=== PATIENT | female | born 1940 | race Caucasian/White ===

== ENCOUNTER 2018-01-18 10:30 | Outpatient (CLI) | payer MEDICARE | END 2018-01-18 10:31 | disposition home or self-care (01) | LOC: BICMAMMO 10:30 | PROVIDERS: ATTEND Specialist | DX: Z12.31 Encounter for screening mammogram for malignant neoplasm of breast (principal) | CPT/HCPCS: 77063; 77067 ==

== ENCOUNTER 2019-01-19 09:55 | Outpatient (CLI) | payer MEDICARE ==
--- NOTE | 2019-01-19 10:35 | MMO ---
Bilateral MAMMO Bilat Screen [facility]. CLINICAL HISTORY: Patient is 78 years old and is seen for screening. The patient has no family history of breast cancer. The patient has no personal history of cancer. VIEWS: The views performed were: bilateral craniocaudal with tomosynthesis and bilateral mediolateral oblique with tomosynthesis. FILMS COMPARED: The present examination has been compared to prior imaging studies performed at [facility] on 12/17/2014, 01/03/2016, 01/05/2017 and 01/18/2018. MAMMOGRAM FINDINGS: There are scattered fibroglandular densities. There are no suspicious masses, suspicious calcifications, or new areas of architectural distortion. IMPRESSION: THERE IS NO MAMMOGRAPHIC EVIDENCE OF MALIGNANCY. A ROUTINE FOLLOW-UP MAMMOGRAM IN 1 YEAR IS RECOMMENDED. THE RESULTS OF THIS EXAM WERE SENT TO THE PATIENT. ACR BI-RADS Category 1 - Negative MAMMOGRAPHY NOTE: 1. A negative mammogram report should not delay a biopsy if a dominant of clinically suspicious mass is present. 2. Approximately 10% to 15% of breast cancers are not detected by mammography. 3. Adenosis and dense breasts may obscure an underlying neoplasm.
== END 2019-01-19 09:56 | disposition home or self-care (01) ==
LOC: BICMAMMO 09:55
PROVIDERS: ATTEND Obstetrics & Gynecology
DX: Z12.31 Encounter for screening mammogram for malignant neoplasm of breast (principal)
CPT/HCPCS: 77063; 77067

== ENCOUNTER 2019-03-16 17:11 | Emergency (ER) | payer MEDICARE ==
[2019-03-16 17:53] LABS: #Basophils 0.1 thou/uL (0.0-0.2); #Eosinphils 0.1 thou/uL (0.0-0.7); #Lymphocytes 5.4 thou/uL (1.20-3.40); #Monocytes 0.8 thou/uL (0.11-0.59); #Neutrophils 5.8 thou/uL (1.40-6.50); %Basophils 0.7 % (0.0-1.0); %Eosinophils 0.6 % (0.0-10.0); %Lymphocytes 44.2 % (21.0-51.0); %Monocytes 6.4 % (0.0-10.0); %Neutrophils 48.1 % (42.0-75.0); Hemoglobin 13.7 g/dL (12.0-16.0); Mean Corpuscular HGB CONC 32.5 g/dL (32.0-36.0); Mean Corpuscular Hemoglobin 27.1 pg (27.0-31.0); Mean Corpuscular Volume 83.4 fL (78.0-98.0); Mean Platelet Volume 8.2 fL (7.4-10.4); Platelet Count 195 thou/uL (130-400); RBC Distribution Width 12.8 % (11.5-14.5); Red Blood Cell (RBC) Count 5.06 mill/uL (4.20-5.40); White Blood Cell (WBC) Count 12.1 thou/uL (4.8-10.8)
--- NOTE | 2019-03-16 17:59 | RAD ---
EXAM: Portable chest PROVIDED CLINICAL HISTORY: Shortness of breath COMPARISON: 02/06/2015 FINDINGS: Cardiac silhouette appears enlarged, which may be least partially on the basis of portable technique. No focal consolidation, pleural fluid or pneumothorax evident. Hiatal hernia noted. IMPRESSION: No evidence for an acute cardiopulmonary process.
[2019-03-16 18:16] LABS: ALT (SGPT) 15 U/L (8-55); AST (SGOT) 22 U/L (5-34); Albumin 4.4 g/dL (3.4-4.8); Alkaline Phosphatase 90 U/L (40-150); Anion Gap 13 mmol/L (10-20); BUN (Urea Nitrogen) 19 mg/dL (9.8-20.1); Bilirubin, Total 0.5 mg/dL (0.2-1.2); Calc. Creatinine Clearance 0 mL/min (70-130); Calcium 9.4 mg/dL (7.8-10.44); Carbon Dioxide 22 mmol/L (23-31); Chloride 105 mmol/L (98-107); Estimated GFR-MDRD 40; Globulin 2.6 g/dL (2.4-3.5); Glucose 105 mg/dL (83-110); Potassium 4.3 mmol/L (3.5-5.1); Sodium 136 mmol/L (136-145)
--- NOTE | 2019-03-18 16:49 | EKG ---
Test Reason : SOB Blood Pressure : / mmHG Vent. Rate : 069 BPM Atrial Rate : 069 BPM P-R Int : 158 ms QRS Dur : 084 ms QT Int : 394 ms P-R-T Axes : 071 -08 046 degrees QTc Int : 422 ms Normal sinus rhythm Normal ECG Confirmed by RUBY CÁRDENAS D.O. ([id number]), editor magazine LISETTE HINKLE ([id number]) on 03/18/2019 4:48:59 PM Referred By: Confirmed By:RUBY CÁRDENAS D.O.
== END 2019-03-16 19:49 | disposition home or self-care (01) ==
LOC: ERS 17:11
DX: J20.9 Acute bronchitis, unspecified (principal); E05.90 Thyrotoxicosis, unspecified without thyrotoxic crisis or storm; E03.9 Hypothyroidism, unspecified; K21.9 Gastro-esophageal reflux disease without esophagitis; E78.5 Hyperlipidemia, unspecified; I10 Essential (primary) hypertension; Z79.899 Other long term (current) drug therapy; Z79.82 Long term (current) use of aspirin
CPT/HCPCS: 36415; 71045; 80053; 83605; 84443; 84484; 85025; 87040; 93005; 94640; 94760; J7620

== ENCOUNTER 2020-02-09 14:27 | Outpatient (CLI) | payer MEDICARE ==
--- NOTE | 2020-02-09 16:28 | MMO ---
Bilateral MAMMO Bilat Screen [facility]. CLINICAL HISTORY: Patient is 79 years old and is seen for screening. The patient has no family history of breast cancer. The patient has no personal history of cancer. VIEWS: The views performed were: bilateral craniocaudal with tomosynthesis and bilateral mediolateral oblique with tomosynthesis. FILMS COMPARED: The present examination has been compared to prior imaging studies performed at [facility] on 01/03/2016, 01/05/2017, 01/18/2018 and 01/19/2019. This study has been interpreted with the assistance of computer-aided detection. MAMMOGRAM FINDINGS: The breasts are almost entirely fat. There are stable nodules seen in both breasts. There are no suspicious masses, suspicious calcifications, or new areas of architectural distortion. IMPRESSION: THERE IS NO MAMMOGRAPHIC EVIDENCE OF MALIGNANCY. A ROUTINE FOLLOW-UP MAMMOGRAM IN 1 YEAR IS RECOMMENDED. THE RESULTS OF THIS EXAM WERE SENT TO THE PATIENT. ACR BI-RADS Category 2 - Benign finding MAMMOGRAPHY NOTE: 1. A negative mammogram report should not delay a biopsy if a dominant of clinically suspicious mass is present. 2. Approximately 10% to 15% of breast cancers are not detected by mammography. 3. Adenosis and dense breasts may obscure an underlying neoplasm. Reported by: LEO CORNELL MD Electonically Signed: [id number]
== END 2020-02-09 14:28 | disposition home or self-care (01) ==
LOC: BICMAMMO 14:27
PROVIDERS: ATTEND Specialist
DX: Z12.31 Encounter for screening mammogram for malignant neoplasm of breast (principal)
CPT/HCPCS: 77063; 77067

== ENCOUNTER 2020-08-14 21:21 | Inpatient (IN) | payer MEDICARE ==
[2020-08-14 23:52] VITALS: BMI 32.1
[2020-08-15] MEDS ORDERED: Sodium Chloride 0.9% 1,000 ML IV SCH (01:00)
[2020-08-15 04:57] LABS: #Basophils 0.1 thou/uL (0.0-0.2); #Lymphocytes 1.3 thou/uL (1.20-3.40); #Monocytes 0.1 thou/uL (0.11-0.59); #Neutrophils 1.9 thou/uL (1.40-6.50); %Basophils 1.6 % (0.0-1.0); %Eosinophils 0.2 % (0.0-10.0); %Lymphocytes 39.3 % (21.0-51.0); %Monocytes 2.2 % (0.0-10.0); %Neutrophils 56.6 % (42.0-75.0); Hemoglobin 12.2 g/dL (12.0-16.0); Mean Corpuscular HGB CONC 33.2 g/dL (32.0-36.0); Mean Corpuscular Hemoglobin 26.8 pg (27.0-31.0); Mean Corpuscular Volume 80.8 fL (78.0-98.0); Mean Platelet Volume 9.7 fL (7.4-10.4); Platelet Count 146 thou/uL (130-400); RBC Distribution Width 12.3 % (11.5-14.5); Red Blood Cell (RBC) Count 4.56 mill/uL (4.20-5.40); White Blood Cell (WBC) Count 3.3 thou/uL (4.8-10.8)
[2020-08-15] MEDS: Dexamethasone 4 mg/ml Vial SLOW IVP SCH (07:51)
[2020-08-15] MEDS ORDERED: Ondansetron PF 4 MG/2 ML Vial IVP PRN (08:12)
[2020-08-15] MEDS ORDERED: Ibuprofen 200 MG TAB PO PRN (08:17)
[2020-08-15] MEDS: Zinc Sulfate 220 MG CAP PO SCH (08:25)
[2020-08-15] MEDS: Potassium Chloride 20 MEQ TAB PO SCH (08:25)
[2020-08-15] MEDS: Ergocalciferol 1.25 MG(50,000 UNITS) CAP PO SCH (08:25)
[2020-08-15] MEDS: Enoxaparin Sodium 40 MG/0.4 ML SYRINGE SC SCH (08:25)
[2020-08-15] MEDS: Ascorbic Acid 500 mg Chewable Tablet PO SCH (08:26)
[2020-08-15] MEDS: Metoprolol Tartrate 25 MG TAB PO SCH ×2 (08:26→20:38)
--- NOTE | 2020-08-15 09:20 | RAD ---
EXAM: Single view of the chest HISTORY: Covid pneumonia COMPARISON: 03/16/2019 FINDINGS: Single view of the chest shows an enlarged but stable cardiomediastinal silhouette. Increa sed interstitial lung markings are present. There are scattered multifocal airspace opacities in the lungs. Degenerative changes are seen in the spine. IMPRESSION: Multifocal infiltrates
[2020-08-15] MEDS: Thyroid 60 MG TAB PO SCH (10:13)
--- NOTE | 2020-08-15 11:16 | HP ---
CHIEF COMPLAINT: COVID pneumonia. HISTORY OF PRESENT ILLNESS: The patient is a 80-year-old female, who initially became ill 6 days prior. She had cough and nausea. She eventually went to [facility] ER. There, she was with her altered mental status, found to have COVID pneumonia, confirmed with chest x-ray as well. The patient was found at [facility] to have altered mental status. This had begun 2 days ago according to the historian which was her daughter. She had been short of breath, beginning approximately [address] Monterroso was contacted for transfer and admission to [facility] at this point. PAST MEDICAL HISTORY: Significant for dyslipidemia, hypertension, hypothyroidism, GERD, depression. PAST SURGICAL HISTORY: Significant for hysterectomy. PSYCHIATRIC HISTORY: There is no psychiatric history other than depression. SOCIAL HISTORY: Recently . Denies ever smoking, alcohol use, or illicit drug use. Lives at home by herself. Allergies:Sulfa, Codeine, Alendronate MEDICATIONS ON ADMISSION: Include; 1. Daily aspirin 81 mg. 2. Lasix 20 mg on Wednesday, Wednesday, Wednesday. 3. Ibuprofen p.r.n. joint pain. 4. Metoprolol 12.5 mg b.i.d. 5. Singulair 10 mg daily. 6. Omeprazole 40 mg daily. 7. Potassium 20 mEq daily. 8. Sertraline 50 mg at bedtime. 9. Virgil Thyroid 60 mg daily. REVIEW OF SYSTEMS: Not obtainable at this time due to the patient's altered mental status. PHYSICAL EXAMINATION: VITAL SIGNS: On admission, blood pressure 106/51, pulse 51, respirations 18, O2 saturation 95% on 4 L. She weighs 205 pounds 8 ounces. GENERAL: This is a morbidly obese, elderly female, who is confused with slurred speech at this time. HEENT: Normocephalic, atraumatic. Pupils are equal, round, and reactive to light. Arcus senilis bilaterally. Conjunctivae without icterus. TMs, nares, and pharynx are clear. NECK: Supple. CHEST: With generally diminished breath sounds, but no active wheezing or rales at this time. HEART: Regular rate and rhythm. BREASTS: Deferred. ABDOMEN: Soft, nontender without organomegaly. : Deferred. EXTREMITIES: Without clubbing or cyanosis. 1+ lower extremity edema noted, which is normal for this patient. SKIN: No acute rashes or lesions. NEUROLOGIC: Cranial nerves are grossly intact. Sensory exam is grossly intact. Unable to test mental status at this time, gait, or cerebellar function. LABORATORY DATA: Lab work thus far shows WBCs 3.3, hemoglobin 12.2, hematocrit 36.8, with platelets at 146. D-dimer 1.62. Chest x-ray at [facility] showing typical bilateral COVID infiltrates. ASSESSMENT: 1. COVID pneumonia with hypoxia and altered mental status. 2. Hypothyroidism. 3. Morbid obesity. PLAN: Supportive care with IV fluids, IV Decadron, serial re-evaluation, prevention of blood clots with Lovenox, fever control with Tylenol. face to face 40 min, total time 1 hour date of [id number]/2020 Job ID: [id number] MTDD
[2020-08-15] MEDS: Sodium Chloride 0.9% 1,000 ML IV SCH ×2 (11:37→20:40)
[2020-08-15 16:01] LABS: ALT (SGPT) 27 U/L (8-55); AST (SGOT) 34 U/L (5-34); Albumin 3.3 g/dL (3.4-4.8); Alkaline Phosphatase 73 U/L (40-110); Bilirubin, Direct 0.3 mg/dL (0.1-0.3); Bilirubin, Total 0.4 mg/dL (0.2-1.2); Protein, Total 5.8 g/dL (6.0-8.3)
[2020-08-15 20:20] LABS: SARS-CoV-2 MS2 Positive; SARS-CoV-2 N Gene Positive; SARS-CoV-2 S Gene Positive; SARS-CoV-2 by NAA DETECTED (NotDetected); SARS-CoV-2 orf1ab Positive
[2020-08-16] MEDS: Benzonatate 100 MG CAP PO PRN (00:35)
[2020-08-16] MEDS ORDERED: diphenhydrAMINE 25 MG CAP PO SCH (02:45)
[2020-08-16] MEDS: Acetaminophen 325 MG TAB PO PRN ×2 (02:59→09:08)
[2020-08-16 05:14] LABS: #Lymphocytes 1.1 thou/uL (1.20-3.40); #Monocytes 0.5 thou/uL (0.11-0.59); #Neutrophils 5.3 thou/uL (1.40-6.50); %Basophils 0.3 % (0.0-1.0); %Eosinophils 0.2 % (0.0-10.0); %Lymphocytes 15.9 % (21.0-51.0); %Monocytes 6.6 % (0.0-10.0); Hemoglobin 11.4 g/dL (12.0-16.0); Mean Corpuscular HGB CONC 34.1 g/dL (32.0-36.0); Mean Corpuscular Hemoglobin 27.9 pg (27.0-31.0); Mean Corpuscular Volume 81.7 fL (78.0-98.0); Platelet Count 153 thou/uL (130-400); RBC Distribution Width 12.2 % (11.5-14.5); White Blood Cell (WBC) Count 6.8 thou/uL (4.8-10.8)
[2020-08-16 05:18] LABS: Anion Gap 15 mmol/L (10-20); BUN (Urea Nitrogen) 33 mg/dL (9.8-20.1); Calc. Creatinine Clearance 65 mL/min (70-130); Carbon Dioxide 17 mmol/L (23-31); Chloride 110 mmol/L (98-107); Glucose 105 mg/dL (83-110); Potassium 4.6 mmol/L (3.5-5.1); Sodium 137 mmol/L (136-145)
[2020-08-16] MEDS ORDERED: REMDESIVIR (EUA) 200 MG in Sodium Chloride 0.9% 250 ML 210 ML IV SCH (08:00)
--- NOTE | 2020-08-16 08:37 | RAD ---
AP CHEST: HISTORY: COVID pneumonia. COMPARISON: 08/15/2020. FINDINGS: Hazy fwyeny-ikyei-ymww infiltrates seen in the periphery of the right upper mid and lower lung. Dilcia lar but less conspicuous infiltrates in the left mid and lower lung. Vascularity remains prominent. Small effusions are again noted. IMPRESSION: Bilateral infiltrates. Evidence of radiologic improvement when compared to yesterday. POS: AGW
[2020-08-16] MEDS: Aspirin Chewable 81 MG TAB PO SCH (09:06)
[2020-08-16] MEDS: Furosemide 20 MG TAB PO SCH (09:06)
[2020-08-16] MEDS: Ergocalciferol 1.25 MG(50,000 UNITS) CAP PO SCH (09:06)
[2020-08-16] MEDS: Sodium Chloride 0.9% 1,000 ML IV SCH ×2 (09:06→18:42)
[2020-08-16] MEDS: Metoprolol Tartrate 25 MG TAB PO SCH ×2 (09:07→19:48)
[2020-08-16] MEDS: Potassium Chloride 20 MEQ TAB PO SCH (09:08)
[2020-08-16] MEDS: Zinc Sulfate 220 MG CAP PO SCH (09:08)
[2020-08-16] MEDS: Ascorbic Acid 500 mg Chewable Tablet PO SCH ×2 (09:08→09:51)
[2020-08-16] MEDS: Enoxaparin Sodium 40 MG/0.4 ML SYRINGE SC SCH (09:09)
[2020-08-16] MEDS: Dexamethasone 4 mg/ml Vial SLOW IVP SCH (09:09)
[2020-08-16] MEDS: Thyroid 60 MG TAB PO SCH (09:10)
[2020-08-17 04:56] LABS: #Monocytes 0.5 thou/uL (0.11-0.59); #Neutrophils 3.2 thou/uL (1.40-6.50); %Basophils 0.1 % (0.0-1.0); %Eosinophils 0.4 % (0.0-10.0); %Lymphocytes 20.7 % (21.0-51.0); %Monocytes 11.2 % (0.0-10.0); %Neutrophils 67.5 % (42.0-75.0); Hemoglobin 11.1 g/dL (12.0-16.0); Mean Corpuscular HGB CONC 31.7 g/dL (32.0-36.0); Mean Corpuscular Hemoglobin 25.9 pg (27.0-31.0); Mean Corpuscular Volume 81.7 fL (78.0-98.0); Mean Platelet Volume 9.4 fL (7.4-10.4); Platelet Count 173 thou/uL (130-400); RBC Distribution Width 12.4 % (11.5-14.5); Red Blood Cell (RBC) Count 4.29 mill/uL (4.20-5.40); White Blood Cell (WBC) Count 4.7 thou/uL (4.8-10.8)
[2020-08-17] MEDS: Thyroid 60 MG TAB PO SCH (06:00)
[2020-08-17] MEDS: Sodium Chloride 0.9% 1,000 ML IV SCH ×3 (07:05→22:05)
[2020-08-17] MEDS: REMDESIVIR (EUA) 100 MG in Sodium Chloride 0.9% 250 ML 230 ML IV SCH (09:02)
[2020-08-17] MEDS: Enoxaparin Sodium 40 MG/0.4 ML SYRINGE SC SCH (09:03)
[2020-08-17] MEDS: Dexamethasone 4 mg/ml Vial SLOW IVP SCH (09:03)
[2020-08-17] MEDS: Metoprolol Tartrate 25 MG TAB PO SCH ×2 (09:04→19:58)
[2020-08-17] MEDS: Zinc Sulfate 220 MG CAP PO SCH (09:05)
[2020-08-17] MEDS: Potassium Chloride 20 MEQ TAB PO SCH (09:05)
[2020-08-17] MEDS: Ascorbic Acid 500 mg Chewable Tablet PO SCH (14:29)
[2020-08-17] MEDS: Ergocalciferol 1.25 MG(50,000 UNITS) CAP PO SCH (14:29)
[2020-08-17] MEDS: ALPRAZolam 0.25 MG TAB PO SCH (19:58)
[2020-08-18 05:03] LABS: Anion Gap 14 mmol/L (10-20); BUN (Urea Nitrogen) 23 mg/dL (9.8-20.1); Calc. Creatinine Clearance 89 mL/min (70-130); Carbon Dioxide 18 mmol/L (23-31); Chloride 114 mmol/L (98-107); Glucose 110 mg/dL (83-110); Sodium 142 mmol/L (136-145)
[2020-08-18 05:07] LABS: #Lymphocytes 1.4 thou/uL (1.20-3.40); #Monocytes 0.5 thou/uL (0.11-0.59); #Neutrophils 3.7 thou/uL (1.40-6.50); %Basophils 0.4 % (0.0-1.0); %Eosinophils 0.5 % (0.0-10.0); %Lymphocytes 23.8 % (21.0-51.0); %Monocytes 9.6 % (0.0-10.0); %Neutrophils 65.7 % (42.0-75.0); Mean Corpuscular HGB CONC 32.6 g/dL (32.0-36.0); Mean Corpuscular Hemoglobin 27.5 pg (27.0-31.0); Mean Corpuscular Volume 84.5 fL (78.0-98.0); Mean Platelet Volume 9.2 fL (7.4-10.4); Platelet Count 195 thou/uL (130-400); RBC Distribution Width 12.5 % (11.5-14.5); Red Blood Cell (RBC) Count 4.36 mill/uL (4.20-5.40); White Blood Cell (WBC) Count 5.7 thou/uL (4.8-10.8)
--- NOTE | 2020-08-18 08:39 | RAD ---
PORTABLE CHEST: HISTORY: COVID pneumonia followup. FINDINGS: Heart size is borderline. There are some atherosclerotic changes of the aorta. The bilateral lung c hanges have not improved. They may be subtly worsened as compared to the previous exam. IMPRESSION: Suggestion of some slight increase in the bilateral lung infiltrates. POS: JEMMA
[2020-08-18] MEDS: Metoprolol Tartrate 25 MG TAB PO SCH ×2 (10:36→21:31)
[2020-08-18] MEDS: Thyroid 60 MG TAB PO SCH (10:36)
[2020-08-18] MEDS: Ascorbic Acid 500 mg Chewable Tablet PO SCH (10:38)
[2020-08-18] MEDS: Dexamethasone 4 mg/ml Vial SLOW IVP SCH (10:39)
[2020-08-18] MEDS: Zinc Sulfate 220 MG CAP PO SCH (10:39)
[2020-08-18] MEDS: Enoxaparin Sodium 40 MG/0.4 ML SYRINGE SC SCH (10:39)
[2020-08-18] MEDS: Potassium Chloride 20 MEQ TAB PO SCH (10:39)
[2020-08-18] MEDS: REMDESIVIR (EUA) 100 MG in Sodium Chloride 0.9% 250 ML 230 ML IV SCH (10:42)
[2020-08-18] MEDS: Ergocalciferol 1.25 MG(50,000 UNITS) CAP PO SCH (10:47)
[2020-08-18] MEDS: Benzonatate 100 MG CAP PO PRN (11:02)
[2020-08-18] MEDS: Sodium Chloride 0.9% 1,000 ML IV SCH ×2 (11:41→20:18)
[2020-08-18] MEDS: guaiFENesin ER 600 MG TAB PO SCH (21:31)
[2020-08-18] MEDS: ALPRAZolam 0.25 MG TAB PO SCH (21:31)
[2020-08-19] MEDS: Sodium Chloride 0.9% 1,000 ML IV SCH ×4 (01:28→23:17)
[2020-08-19 04:57] LABS: #Eosinphils 0.1 thou/uL (0.0-0.7); #Lymphocytes 1.3 thou/uL (1.20-3.40); #Monocytes 0.7 thou/uL (0.11-0.59); #Neutrophils 3.7 thou/uL (1.40-6.50); %Basophils 0.1 % (0.0-1.0); %Eosinophils 1.7 % (0.0-10.0); %Lymphocytes 21.8 % (21.0-51.0); %Monocytes 11.4 % (0.0-10.0); Hemoglobin 10.8 g/dL (12.0-16.0); Mean Corpuscular HGB CONC 31.5 g/dL (32.0-36.0); Mean Corpuscular Hemoglobin 26.1 pg (27.0-31.0); Mean Corpuscular Volume 82.7 fL (78.0-98.0); Mean Platelet Volume 9.1 fL (7.4-10.4); Platelet Count 191 thou/uL (130-400); RBC Distribution Width 12.5 % (11.5-14.5); Red Blood Cell (RBC) Count 4.16 mill/uL (4.20-5.40); White Blood Cell (WBC) Count 5.7 thou/uL (4.8-10.8)
[2020-08-19 05:21] LABS: Anion Gap 11 mmol/L (10-20); BUN (Urea Nitrogen) 18 mg/dL (9.8-20.1); Calc. Creatinine Clearance 91 mL/min (70-130); Calcium 8.1 mg/dL (7.8-10.44); Carbon Dioxide 22 mmol/L (23-31); Chloride 113 mmol/L (98-107); Glucose 98 mg/dL (83-110); Potassium 4.5 mmol/L (3.5-5.1); Sodium 141 mmol/L (136-145)
[2020-08-19] MEDS: Thyroid 60 MG TAB PO SCH (05:41)
[2020-08-19] MEDS: guaiFENesin ER 600 MG TAB PO SCH ×2 (10:17→22:31)
[2020-08-19] MEDS: Ascorbic Acid 500 mg Chewable Tablet PO SCH (10:17)
[2020-08-19] MEDS: Ergocalciferol 1.25 MG(50,000 UNITS) CAP PO SCH (10:18)
[2020-08-19] MEDS: Aspirin Chewable 81 MG TAB PO SCH (10:18)
[2020-08-19] MEDS: Metoprolol Tartrate 25 MG TAB PO SCH ×2 (10:18→22:32)
[2020-08-19] MEDS: Potassium Chloride 20 MEQ TAB PO SCH (10:20)
[2020-08-19] MEDS: Furosemide 20 MG TAB PO SCH (10:20)
[2020-08-19] MEDS: Zinc Sulfate 220 MG CAP PO SCH (10:21)
[2020-08-19] MEDS: Dexamethasone 4 mg/ml Vial SLOW IVP SCH (10:21)
[2020-08-19] MEDS: Enoxaparin Sodium 40 MG/0.4 ML SYRINGE SC SCH (10:21)
--- NOTE | 2020-08-19 12:42 | PQF ---
CLINICAL DOCUMENTATION CLARIFICATION FORM: Dear Dr. Lilian Monterroso Date: 08/19/20 1234 Please exercise your independent, professional judgment in responding to the clarification form. Clinical indicators are provided on the bottom of this form for your review. Please check appropriate box(es): [ x ] Acute Respiratory Failure: [ x ] with Hypoxia [ ] with Hypercapnia [ ] Acute On Chronic Respiratory Failure: [ ] with Hypoxia [ ] with Hypercapnia [ ] Acute Respiratory Failure due to: (etiology) [ ] Chronic Respiratory Failure only [ ] with Hypoxia [ ] with Hypercapnia [ ] Hypoxia [ x ] Other diagnosis ___Covid-19 [ ] Unable to determine In addition, please specify: Present on Admission (POA): [x ] Yes [ ] No [ ] Unable to determine For continuity of documentation, please document condition throughout progress notes and discharge summary. Thank You. To be completed by CDI/Coding staff for physician review: CLINICAL INDICATORS - SIGNS / SYMPTOMS / LABS / RESULTS AND LOCATION IN MR CXR multifocal infiltrates ( 08/15) 08/17 o2 sat 89% 4L/NC On admission, O2 saturation 95% on 4L. Covid pneumonia with hypoxia and altered mental status ( H&P/ Monterroso) 08/15 CXR suggestion of some slight increase in the bilateral lung infiltrates RISK FACTORS / RESULTS AND LOCATION IN MR Covid 19 Pneumonia with hypoxia ( H&P/ Monterroso) 08/15 TREATMENTS / RESULTS AND LOCATION IN MR CXR ( 08/15, 08/16, 08/18) Supplemental oxygen (08/14-present) Acute Respiratory Failure: ABG pH < 7.35 or > 7.45; Decreased oxygen saturation (<90% room air or < 95% on oxygen); PCO2 > 50 mm Hg; PO2 < 60 mm Hg; Labored or rapid respirations ARDS: Dx Criteria [[place] ARDS]: Respiratory symptoms within one week of a known clinical insult (e.g. shock, infection, surgery, trauma) Bilateral opacities in CXR/Chest CT not due to CHF or fluid THANK YOU! CDS Signature: Erika Reynolds RN Phone #: [phone] Date:08/19/2020 This is a permanent part of the Medical Record [facility]
[2020-08-19] MEDS: REMDESIVIR (EUA) 100 MG in Sodium Chloride 0.9% 250 ML 230 ML IV SCH (12:56)
[2020-08-19] MEDS: ALPRAZolam 0.25 MG TAB PO SCH (22:31)
[2020-08-19] MEDS: Benzonatate 100 MG CAP PO PRN (22:40)
[2020-08-20 05:06] LABS: #Eosinphils 0.2 thou/uL (0.0-0.7); #Lymphocytes 1.5 thou/uL (1.20-3.40); #Monocytes 0.6 thou/uL (0.11-0.59); #Neutrophils 4.3 thou/uL (1.40-6.50); %Basophils 0.1 % (0.0-1.0); %Eosinophils 2.8 % (0.0-10.0); %Lymphocytes 23.2 % (21.0-51.0); %Monocytes 8.6 % (0.0-10.0); %Neutrophils 65.3 % (42.0-75.0); Hemoglobin 10.6 g/dL (12.0-16.0); Mean Corpuscular HGB CONC 33.1 g/dL (32.0-36.0); Mean Corpuscular Hemoglobin 27.2 pg (27.0-31.0); Mean Corpuscular Volume 82.4 fL (78.0-98.0); Mean Platelet Volume 9.4 fL (7.4-10.4); Platelet Count 204 thou/uL (130-400); RBC Distribution Width 12.3 % (11.5-14.5); Red Blood Cell (RBC) Count 3.89 mill/uL (4.20-5.40); White Blood Cell (WBC) Count 6.6 thou/uL (4.8-10.8)
[2020-08-20 05:24] LABS: Anion Gap 11 mmol/L (10-20); BUN (Urea Nitrogen) 14 mg/dL (9.8-20.1); Calc. Creatinine Clearance 96 mL/min (70-130); Calcium 7.7 mg/dL (7.8-10.44); Carbon Dioxide 22 mmol/L (23-31); Chloride 112 mmol/L (98-107); Glucose 87 mg/dL (83-110); Potassium 3.9 mmol/L (3.5-5.1); Sodium 141 mmol/L (136-145)
[2020-08-20] MEDS: Thyroid 60 MG TAB PO SCH (07:15)
[2020-08-20] MEDS: Enoxaparin Sodium 40 MG/0.4 ML SYRINGE SC SCH (08:23)
[2020-08-20] MEDS: Ergocalciferol 1.25 MG(50,000 UNITS) CAP PO SCH (08:24)
[2020-08-20] MEDS: Ascorbic Acid 500 mg Chewable Tablet PO SCH (08:24)
[2020-08-20] MEDS: Potassium Chloride 20 MEQ TAB PO SCH (08:24)
[2020-08-20] MEDS: Metoprolol Tartrate 25 MG TAB PO SCH ×2 (08:24→20:41)
[2020-08-20] MEDS: guaiFENesin ER 600 MG TAB PO SCH ×2 (08:24→20:40)
[2020-08-20] MEDS: Zinc Sulfate 220 MG CAP PO SCH (08:25)
[2020-08-20] MEDS: Dexamethasone 4 mg/ml Vial SLOW IVP SCH (08:25)
[2020-08-20] MEDS: Benzonatate 100 MG CAP PO PRN ×2 (08:25→20:41)
--- NOTE | 2020-08-20 09:15 | RAD ---
PORTABLE CHEST: Date; 08/20/2020 HISTORY: Follow-up COVID pneumonia. COMPARISON: 08/16/2020 exam. FINDINGS: Heart size appears borderline size. Parenchymal lung infiltrates are stable. IMPRESSION: Stable bilateral infiltrates. POS: OFF
[2020-08-20] MEDS: Sodium Chloride 0.9% 1,000 ML IV SCH (12:47)
[2020-08-20] MEDS: REMDESIVIR (EUA) 100 MG in Sodium Chloride 0.9% 250 ML 230 ML IV SCH (12:47)
[2020-08-20] MEDS: ALPRAZolam 0.25 MG TAB PO SCH (20:41)
[2020-08-21] MEDS: Benzonatate 100 MG CAP PO PRN (05:32)
[2020-08-21] MEDS: Thyroid 60 MG TAB PO SCH (05:32)
[2020-08-21] MEDS: Dexamethasone 4 mg/ml Vial SLOW IVP SCH ×2 (07:46→09:27)
[2020-08-21] MEDS: Ergocalciferol 1.25 MG(50,000 UNITS) CAP PO SCH (07:47)
[2020-08-21] MEDS: Aspirin Chewable 81 MG TAB PO SCH (07:47)
[2020-08-21] MEDS: Zinc Sulfate 220 MG CAP PO SCH (07:47)
[2020-08-21] MEDS: Metoprolol Tartrate 25 MG TAB PO SCH (07:47)
[2020-08-21] MEDS: Potassium Chloride 20 MEQ TAB PO SCH (07:48)
[2020-08-21] MEDS: Furosemide 20 MG TAB PO SCH (07:48)
[2020-08-21] MEDS: guaiFENesin ER 600 MG TAB PO SCH (07:48)
[2020-08-21] MEDS: Enoxaparin Sodium 40 MG/0.4 ML SYRINGE SC SCH (07:49)
[2020-08-21] MEDS: Ascorbic Acid 500 mg Chewable Tablet PO SCH (07:49)
[2020-08-21] MEDS ORDERED: predniSONE 5 MG TAB PO SCH (11:30)
[2020-08-21 11:46] VITALS: BP 110/53; TEMP 98
== END 2020-08-21 15:40 | disposition home health service (06) | DRG 177 ==
LOC: 2SW 21:21 → OBSVTOIN 08-15 00:19
PROVIDERS: ADMIT Specialist; ATTEND Specialist
PROC: 8E0ZXY6 Isolation (ICD-10-PCS; principal; 2020-08-15)
DX: U07.1 COVID-19 (principal); J12.89 Other viral pneumonia; J96.01 Acute respiratory failure with hypoxia; E78.5 Hyperlipidemia, unspecified; I10 Essential (primary) hypertension; E03.9 Hypothyroidism, unspecified; E66.01 Morbid (severe) obesity due to excess calories; K21.9 Gastro-esophageal reflux disease without esophagitis; F32.9 Major depressive disorder, single episode, unspecified; Z90.710 Acquired absence of both cervix and uterus; Z88.2 Allergy status to sulfonamides; Z88.5 Allergy status to narcotic agent; Z88.8 Allergy status to other drugs, medicaments and biological substances; Z79.82 Long term (current) use of aspirin; Z68.32 Body mass index [BMI] 32.0-32.9, adult
CPT/HCPCS: 36415; 36430; 71045; 80048; 80076; 82533; 84443; 85025; 85379; 86850; 86900; 86901; 87040; 87635; J1100; J1650; J2405; J7050; J7512; P9017; Q0163; U0003

== ENCOUNTER 2022-02-11 13:58 | Outpatient (CLI) | payer MEDICARE | END 2022-02-11 13:59 | disposition home or self-care (01) | LOC: BICMAMMO 13:58 | PROVIDERS: ATTEND Specialist | DX: Z12.31 Encounter for screening mammogram for malignant neoplasm of breast (principal) | CPT/HCPCS: 77063; 77067 ==

== ENCOUNTER 2022-06-15 10:38 | Outpatient (CLI) | payer MEDICARE | END 2022-06-15 10:39 | disposition home or self-care (01) | LOC: ULT 10:38 | PROVIDERS: ATTEND Internal Medicine Cardiovascular Disease | DX: E04.1 Nontoxic single thyroid nodule (principal) | CPT/HCPCS: 76536 ==

== ENCOUNTER 2023-03-28 16:15 | Inpatient (IN) | payer MEDICARE ==
[2023-03-28 16:49] LABS: Hematocrit 30.6 % (36.0-47.0); Hemoglobin 9.2 g/dL (12.0-16.0); Mean Corpuscular HGB CONC 30.1 g/dL (32.0-36.0); Mean Corpuscular Hemoglobin 22.7 pg (27.0-31.0); Mean Corpuscular Volume 75.4 fl (78.0-98.0); Mean Platelet Volume 10.6 fL (7.4-10.4); Platelet Count 170 10x3/uL (130-400); Red Blood Cell (RBC) Count 4.06 mill/uL (4.20-5.40); White Blood Cell (WBC) Count 6.1 10x3/uL (4.8-10.8)
[2023-03-28 16:51] LABS: Delete Auto Diff?? YES; Manual Diff?? YES
[2023-03-28] MEDS ORDERED: cefTRIAXone (ROCEPHIN) 2 GM VIAL ONE (16:52)
[2023-03-28] MEDS ORDERED: methylPREDNISolone Sod Succ/PF 125 MG/2 ML VIAL ONE (16:52)
[2023-03-28] MEDS ORDERED: Magnesium 2 GM/50 ML BAG (IN WATER) ONE (16:53)
[2023-03-28] MEDS ORDERED: Azithromycin 500 MG VIAL ONE (16:53)
[2023-03-28] MEDS ORDERED: Ipratropium Bromide 2.5 ml Neb ONE (16:58)
[2023-03-28 17:12] LABS: Burr Cells SLIGHT = 2-5 cells HPF (0-1); CellaVision Operator ID LAB.KB; Eosinophils 3 % (0-10); Hypochromia SLIGHT = 6-15 cells HPF (0-5); Lymphocytes 58 % (21-51); Microcytosis SLIGHT = 6-15 cells HPF (0-5); Monocytes 4 % (0-10); Neutrophil 33 % (42-75); Ovalocytes SLIGHT = 2-5 cells HPF (0-1); Platelet Adequacy Comment Platelets Normal; Polychromasia SLIGHT = 2-3 cells HPF (0-2); Smudge Cells 24.2 %; Total Cell Count 99
[2023-03-28 17:16] LABS: ALT (SGPT) 21 U/L (8-55); AST (SGOT) 25 U/L (5-34); Alkaline Phosphatase 99 U/L (40-110); Anion Gap 16 mmol/L (10-20); BUN (Urea Nitrogen) 21 mg/dL (9.8-20.1); Bilirubin, Total 0.2 mg/dL (0.2-1.2); Calc. Creatinine Clearance 0 mL/min (70-130); Calcium 8.9 mg/dL (7.8-10.44); Carbon Dioxide 26 mmol/L (23-31); Chloride 102 mmol/L (98-107); Estimated GFR 45; Globulin 1.8 g/dL (2.4-3.5); Glucose 111 mg/dL (83-110); Protein, Total 5.8 g/dL (5.8-8.1); Sodium 139 mmol/L (136-145)
[2023-03-28] MEDS ORDERED: Ondansetron ODT 4 MG TAB PO PRN (19:00)
[2023-03-28] MEDS ORDERED: Senokot S 8.6-50 MG TAB PO PRN (19:00)
[2023-03-28] MEDS ORDERED: Ondansetron PF 4 MG/2 ML Vial IVP PRN (19:00)
[2023-03-28] MEDS ORDERED: Calcium Carbonate 500 MG ChewTAB PO PRN (19:00)
[2023-03-28] MEDS ORDERED: Guaifenesin DM 100-10/5 ML UDCUP PO PRN (19:00)
[2023-03-28] MEDS ORDERED: Ipratropium/Albuterol 3 ML NEB NEB SCH (22:30)
[2023-03-28 23:25] VITALS: BMI 38.9
[2023-03-28] MEDS: guaiFENesin ER 600 MG TAB PO SCH (23:40)
[2023-03-29 00:32] LABS: Legionella Urinary Ag Negative (Negative); Strep pneumo Urine Ag NEGATIVE (NEGATIVE)
[2023-03-29] MEDS: Ipratropium/Albuterol 3 ML NEB NEB SCH ×4 (00:47→19:01)
[2023-03-29] MEDS ORDERED: HYDROcodone/Acetaminophen 5/325 mg Tablet PO SCH ×2 (01:00→06:00)
[2023-03-29] MEDS ORDERED: Famciclovir 500 MG TAB PO SCH (03:00)
[2023-03-29] MEDS: HYDROcodone/Acetaminophen 5/325 mg Tablet PO PRN ×4 (05:01→23:16)
[2023-03-29] MEDS: Levothyroxine Sodium 50 MCG TAB PO SCH (05:03)
[2023-03-29] MEDS: Famciclovir 500 MG TAB PO SCH ×3 (05:03→22:03)
[2023-03-29 05:44] LABS: #Monocytes 0.4 thou/uL (0.11-0.59); #Neutrophils 4.8 thou/uL (1.40-6.50); %Basophils 0.1 % (0.0-1.0); %Lymphocytes 29.5 % (21.0-51.0); %Neutrophils 64.9 % (42.0-75.0); Hematocrit 33.9 % (36.0-47.0); Hemoglobin 10.2 g/dL (12.0-16.0); Mean Corpuscular HGB CONC 30.1 g/dL (32.0-36.0); Mean Corpuscular Hemoglobin 22.3 pg (27.0-31.0); Mean Platelet Volume 10.8 fL (7.4-10.4); Platelet Count 177 10x3/uL (130-400); RBC Distribution Width 14.7 % (11.5-14.5); Red Blood Cell (RBC) Count 4.58 mill/uL (4.20-5.40); White Blood Cell (WBC) Count 7.5 10x3/uL (4.8-10.8)
[2023-03-29 06:24] LABS: Anion Gap 16 mmol/L (10-20); BUN (Urea Nitrogen) 20 mg/dL (9.8-20.1); Calc. Creatinine Clearance 76 mL/min (70-130); Calcium 8.9 mg/dL (7.8-10.44); Carbon Dioxide 21 mmol/L (23-31); Chloride 102 mmol/L (98-107); Estimated GFR 54; Glucose 173 mg/dL (83-110); Iron 30 ug/dL (50-170); Iron Binding Capacity, Total 500 mcg/dL (265-497); Potassium 4.6 mmol/L (3.5-5.1); Sodium 134 mmol/L (136-145); Transferrin, Serum 400 mg/dL (173-360)
[2023-03-29] MEDS: Cholecalciferol 1,000 UNITS (25 MCG) TAB PO SCH (08:19)
[2023-03-29] MEDS: Montelukast Sodium 10 mg Tablet PO SCH (08:19)
[2023-03-29] MEDS: Aspirin Chewable 81 MG TAB PO SCH (08:19)
[2023-03-29] MEDS: Metoprolol Tartrate 25 MG TAB PO SCH ×2 (08:20→22:04)
[2023-03-29] MEDS: guaiFENesin ER 600 MG TAB PO SCH ×2 (08:20→22:04)
[2023-03-29] MEDS: methylPREDNISolone Sod Succ 40 MG VIAL IVP SCH (08:20)
[2023-03-29] MEDS: Loratadine 10 MG TAB PO SCH (08:20)
[2023-03-29] MEDS ORDERED: cefTRIAXone\\ROCEPHIN 1 GM in Sodium Chloride 0.9% 100 ML IVPB SCH (18:00)
[2023-03-29] MEDS ORDERED: Azithromycin 500 MG in Sodium Chloride 0.9% 250 ML 250 ML IVPB SCH (20:00)
[2023-03-29] MEDS: Sertraline 25 MG TAB PO SCH (22:04)
[2023-03-30] MEDS: Ipratropium/Albuterol 3 ML NEB NEB SCH ×4 (00:54→19:23)
[2023-03-30] MEDS: Levothyroxine Sodium 50 MCG TAB PO SCH (05:07)
[2023-03-30] MEDS: Famciclovir 500 MG TAB PO SCH ×3 (05:07→20:40)
[2023-03-30 05:30] LABS: #Monocytes 0.8 thou/uL (0.11-0.59); #Neutrophils 6.7 thou/uL (1.40-6.50); %Basophils 0.2 % (0.0-1.0); %Monocytes 7.8 % (0.0-10.0); %Neutrophils 63.5 % (42.0-75.0); Hematocrit 29.5 % (36.0-47.0); Hemoglobin 8.9 g/dL (12.0-16.0); Mean Corpuscular HGB CONC 30.2 g/dL (32.0-36.0); Mean Corpuscular Hemoglobin 22.4 pg (27.0-31.0); Mean Corpuscular Volume 74.1 fl (78.0-98.0); Mean Platelet Volume 11.1 fL (7.4-10.4); Platelet Count 176 10x3/uL (130-400); RBC Distribution Width 15.3 % (11.5-14.5); Red Blood Cell (RBC) Count 3.98 mill/uL (4.20-5.40); White Blood Cell (WBC) Count 10.5 10x3/uL (4.8-10.8)
[2023-03-30 05:50] LABS: Anion Gap 14 mmol/L (10-20); BUN (Urea Nitrogen) 34 mg/dL (9.8-20.1); Calc. Creatinine Clearance 67 mL/min (70-130); Calcium 8.6 mg/dL (7.8-10.44); Carbon Dioxide 24 mmol/L (23-31); Chloride 106 mmol/L (98-107); Estimated GFR 46; Glucose 127 mg/dL (83-110); Potassium 4.5 mmol/L (3.5-5.1); Sodium 139 mmol/L (136-145)
[2023-03-30] MEDS: HYDROcodone/Acetaminophen 5/325 mg Tablet PO PRN ×2 (07:52→16:15)
[2023-03-30] MEDS: Cholecalciferol 1,000 UNITS (25 MCG) TAB PO SCH (07:53)
[2023-03-30] MEDS: Metoprolol Tartrate 25 MG TAB PO SCH ×2 (07:54→20:40)
[2023-03-30] MEDS: guaiFENesin ER 600 MG TAB PO SCH ×2 (07:54→20:40)
[2023-03-30] MEDS: Montelukast Sodium 10 mg Tablet PO SCH (07:55)
[2023-03-30] MEDS: methylPREDNISolone Sod Succ 40 MG VIAL IVP SCH ×2 (07:55→18:19)
[2023-03-30] MEDS: Loratadine 10 MG TAB PO SCH (07:55)
[2023-03-30 08:21] LABS: Burr Cells SLIGHT = 2-5 cells HPF (0-1); CellaVision Operator ID LAB.GE; Microcytosis SLIGHT = 6-15 cells HPF (0-5); Ovalocytes SLIGHT = 2-5 cells HPF (0-1); Platelet Adequacy Comment Platelets Normal; Polychromasia SLIGHT = 2-3 cells HPF (0-2)
[2023-03-30] MEDS: Budesonide 0.5 MG/2 ML NEB NEB SCH (19:25)
[2023-03-30] MEDS: Sertraline 25 MG TAB PO SCH (20:40)
[2023-03-31] MEDS: Ipratropium/Albuterol 3 ML NEB NEB SCH ×4 (00:36→18:14)
[2023-03-31] MEDS: methylPREDNISolone Sod Succ 40 MG VIAL IVP SCH ×5 (01:18→23:16)
[2023-03-31 04:55] LABS: #Monocytes 0.1 thou/uL (0.11-0.59); #Neutrophils 4.4 thou/uL (1.40-6.50); %Lymphocytes 24.3 % (21.0-51.0); %Neutrophils 72.7 % (42.0-75.0); Hematocrit 30.3 % (36.0-47.0); Hemoglobin 9.2 g/dL (12.0-16.0); Mean Corpuscular HGB CONC 30.4 g/dL (32.0-36.0); Mean Corpuscular Hemoglobin 22.6 pg (27.0-31.0); Mean Corpuscular Volume 74.4 fl (78.0-98.0); Mean Platelet Volume 10.7 fL (7.4-10.4); Platelet Count 183 10x3/uL (130-400); RBC Distribution Width 15.6 % (11.5-14.5); Red Blood Cell (RBC) Count 4.07 mill/uL (4.20-5.40); White Blood Cell (WBC) Count 6.1 10x3/uL (4.8-10.8)
[2023-03-31 05:12] LABS: Hemoglobin A1c 5.4 % (4.0-6.0)
[2023-03-31] MEDS: Levothyroxine Sodium 50 MCG TAB PO SCH (05:25)
[2023-03-31] MEDS: Famciclovir 500 MG TAB PO SCH ×3 (05:25→20:49)
[2023-03-31 05:27] LABS: Anion Gap 14 mmol/L (10-20); BUN (Urea Nitrogen) 27 mg/dL (9.8-20.1); Calc. Creatinine Clearance 86 mL/min (70-130); Calcium 8.7 mg/dL (7.8-10.44); Carbon Dioxide 23 mmol/L (23-31); Chloride 105 mmol/L (98-107); Estimated GFR 63; Glucose 169 mg/dL (83-110); Potassium 4.9 mmol/L (3.5-5.1); Sodium 137 mmol/L (136-145)
[2023-03-31] MEDS: Budesonide 0.5 MG/2 ML NEB NEB SCH ×2 (07:06→18:14)
[2023-03-31] MEDS: Aspirin Chewable 81 MG TAB PO SCH (09:39)
[2023-03-31] MEDS: Azithromycin 250 MG TAB PO SCH (09:39)
[2023-03-31] MEDS: guaiFENesin ER 600 MG TAB PO SCH ×2 (09:40→20:50)
[2023-03-31] MEDS: Loratadine 10 MG TAB PO SCH ×2 (09:40→09:53)
[2023-03-31] MEDS: Cholecalciferol 1,000 UNITS (25 MCG) TAB PO SCH (09:40)
[2023-03-31] MEDS: Cefdinir 300 MG CAP PO SCH (09:40)
[2023-03-31] MEDS: Metoprolol Tartrate 25 MG TAB PO SCH ×2 (09:41→20:50)
[2023-03-31] MEDS: Montelukast Sodium 10 mg Tablet PO SCH (09:42)
[2023-03-31] MEDS: Acetaminophen 325 MG TAB PO PRN ×2 (12:39→23:15)
[2023-03-31] MEDS: Sertraline 25 MG TAB PO SCH (20:50)
[2023-04-01] MEDS: Ipratropium/Albuterol 3 ML NEB NEB SCH ×4 (00:21→18:40)
[2023-04-01] MEDS: Levothyroxine Sodium 50 MCG TAB PO SCH (05:15)
[2023-04-01] MEDS: methylPREDNISolone Sod Succ 40 MG VIAL IVP SCH (05:15)
[2023-04-01] MEDS: Famciclovir 500 MG TAB PO SCH ×3 (05:15→20:26)
[2023-04-01 05:38] LABS: #Monocytes 0.3 thou/uL (0.11-0.59); #Neutrophils 5.3 thou/uL (1.40-6.50); %Lymphocytes 21.2 % (21.0-51.0); %Monocytes 4.1 % (0.0-10.0); %Neutrophils 73.3 % (42.0-75.0); Hematocrit 29.4 % (36.0-47.0); Hemoglobin 8.9 g/dL (12.0-16.0); Mean Corpuscular HGB CONC 30.3 g/dL (32.0-36.0); Mean Corpuscular Hemoglobin 22.5 pg (27.0-31.0); Mean Corpuscular Volume 74.2 fl (78.0-98.0); Mean Platelet Volume 10.3 fL (7.4-10.4); Platelet Count 168 10x3/uL (130-400); RBC Distribution Width 15.7 % (11.5-14.5); Red Blood Cell (RBC) Count 3.96 mill/uL (4.20-5.40); White Blood Cell (WBC) Count 7.2 10x3/uL (4.8-10.8)
[2023-04-01 06:10] LABS: Anion Gap 14 mmol/L (10-20); BUN (Urea Nitrogen) 27 mg/dL (9.8-20.1); Calc. Creatinine Clearance 83 mL/min (70-130); Calcium 8.9 mg/dL (7.8-10.44); Carbon Dioxide 21 mmol/L (23-31); Chloride 108 mmol/L (98-107); Estimated GFR 60; Glucose 150 mg/dL (83-110); Potassium 4.5 mmol/L (3.5-5.1); Sodium 138 mmol/L (136-145)
[2023-04-01 06:41] LABS: Anisocytosis SLIGHT = 6-15 cells HPF (0-5); CellaVision Operator ID LAB.JMM; Hypochromia SLIGHT = 6-15 cells HPF (0-5); Platelet Adequacy Comment Platelets Normal; Polychromasia SLIGHT = 2-3 cells HPF (0-2)
[2023-04-01] MEDS: Budesonide 0.5 MG/2 ML NEB NEB SCH ×2 (06:52→18:48)
[2023-04-01] MEDS ORDERED: Levalbuterol HCl 1.25 MG/0.5 ML NEB NEB PRN ×2 (07:52→23:26)
[2023-04-01] MEDS ORDERED: Ipratropium Bromide 2.5 ml Neb NEB PRN (07:54)
[2023-04-01] MEDS: Montelukast Sodium 10 mg Tablet PO SCH (09:25)
[2023-04-01] MEDS: Metoprolol Tartrate 25 MG TAB PO SCH ×2 (09:25→20:26)
[2023-04-01] MEDS: Cholecalciferol 1,000 UNITS (25 MCG) TAB PO SCH (09:25)
[2023-04-01] MEDS: predniSONE 20 MG TAB PO SCH ×2 (09:25→17:31)
[2023-04-01] MEDS: Azithromycin 250 MG TAB PO SCH (09:25)
[2023-04-01] MEDS: Cefdinir 300 MG CAP PO SCH (09:25)
[2023-04-01] MEDS: guaiFENesin ER 600 MG TAB PO SCH ×2 (09:25→20:26)
[2023-04-01] MEDS: Sertraline 25 MG TAB PO SCH (20:26)
[2023-04-02] MEDS: Acetaminophen 325 MG TAB PO PRN (00:07)
[2023-04-02] MEDS: Ipratropium/Albuterol 3 ML NEB NEB SCH ×2 (02:03→07:06)
[2023-04-02] MEDS: Levothyroxine Sodium 50 MCG TAB PO SCH (05:24)
[2023-04-02] MEDS: Famciclovir 500 MG TAB PO SCH (05:24)
[2023-04-02 06:00] LABS: #Monocytes 0.7 thou/uL (0.11-0.59); #Neutrophils 6.5 thou/uL (1.40-6.50); %Basophils 0.1 % (0.0-1.0); %Lymphocytes 30.1 % (21.0-51.0); %Monocytes 6.2 % (0.0-10.0); %Neutrophils 62.8 % (42.0-75.0); Hematocrit 29.5 % (36.0-47.0); Mean Corpuscular HGB CONC 30.5 g/dL (32.0-36.0); Mean Corpuscular Hemoglobin 22.8 pg (27.0-31.0); Mean Platelet Volume 10.8 fL (7.4-10.4); Platelet Count 202 10x3/uL (130-400); RBC Distribution Width 15.7 % (11.5-14.5); Red Blood Cell (RBC) Count 3.95 mill/uL (4.20-5.40); White Blood Cell (WBC) Count 10.4 10x3/uL (4.8-10.8)
[2023-04-02 06:14] LABS: Mean Corpuscular Volume 74.7 fl (78.0-98.0)
[2023-04-02 06:22] LABS: Anion Gap 9 mmol/L (10-20); BUN (Urea Nitrogen) 28 mg/dL (9.8-20.1); Calc. Creatinine Clearance 85 mL/min (70-130); Calcium 8.5 mg/dL (7.8-10.44); Carbon Dioxide 22 mmol/L (23-31); Chloride 109 mmol/L (98-107); Estimated GFR 62; Glucose 112 mg/dL (83-110); Potassium 4.4 mmol/L (3.5-5.1); Sodium 136 mmol/L (136-145)
[2023-04-02 06:51] LABS: CellaVision Operator ID lab.dlt; Large Platelets 2.6 % (0-5); Microcytosis SLIGHT = 6-15 cells HPF (0-5); Platelet Adequacy Comment Platelets Normal; Poikilocytosis SLIGHT = 6-15 cells HPF (0-5)
[2023-04-02] MEDS: Budesonide 0.5 MG/2 ML NEB NEB SCH (07:05)
[2023-04-02 07:58] VITALS: BP 139/65; TEMP 97.9
[2023-04-02] MEDS: predniSONE 20 MG TAB PO SCH (09:30)
[2023-04-02] MEDS: Metoprolol Tartrate 25 MG TAB PO SCH (09:30)
[2023-04-02] MEDS: Cholecalciferol 1,000 UNITS (25 MCG) TAB PO SCH (09:30)
[2023-04-02] MEDS: guaiFENesin ER 600 MG TAB PO SCH (09:32)
[2023-04-02] MEDS: Azithromycin 250 MG TAB PO SCH (09:32)
[2023-04-02] MEDS: Aspirin Chewable 81 MG TAB PO SCH (09:51)
[2023-04-02] MEDS: Cefdinir 300 MG CAP PO SCH (09:51)
[2023-04-02] MEDS: Montelukast Sodium 10 mg Tablet PO SCH (09:51)
== END 2023-04-02 10:49 | disposition home or self-care (01) | DRG 202 ==
LOC: ERS 16:15 → 2SW 19:01 → OBSVTOIN 03-30 13:41
PROVIDERS: ADMIT Student in an Organized Health Care Education/Training Program; ATTEND Hospitalist
DX: J45.901 Unspecified asthma with (acute) exacerbation (principal); R78.81 Bacteremia; B02.9 Zoster without complications; E03.9 Hypothyroidism, unspecified; K21.9 Gastro-esophageal reflux disease without esophagitis; I10 Essential (primary) hypertension; E78.5 Hyperlipidemia, unspecified; F32.A Depression, unspecified; Z96.651 Presence of right artificial knee joint; D50.9 Iron deficiency anemia, unspecified; U09.9 Post COVID-19 condition, unspecified; Z88.2 Allergy status to sulfonamides; Z88.5 Allergy status to narcotic agent; Z88.8 Allergy status to other drugs, medicaments and biological substances; Z91.041 Radiographic dye allergy status; Z79.82 Long term (current) use of aspirin; Z79.899 Other long term (current) drug therapy; Z90.49 Acquired absence of other specified parts of digestive tract; Z90.710 Acquired absence of both cervix and uterus
CPT/HCPCS: 36415; 71045; 71046; 80048; 80053; 82274; 82728; 83036; 83540; 83550; 83880; 84145; 84443; 84466; 84484; 85025; 87040; 87077; 87149; 87449; 87899; 93005; 94640; 94760; 96365; 96367; 96375; 96376; G0378; J0456; J0696; J2920; J2930; J3475; J3490; J7050; J7512; J7611; J7620; J7626

== ENCOUNTER 2023-07-16 08:27 | Outpatient (CLI) | payer MEDICARE | END 2023-07-16 08:28 | disposition home or self-care (01) | LOC: SCSMRI 08:27 | PROVIDERS: ATTEND Specialist | DX: R41.1 Anterograde amnesia (principal); R90.82 White matter disease, unspecified | CPT/HCPCS: 70551 ==

== ENCOUNTER 2024-06-06 23:48 | Inpatient (IN) | payer MEDICARE ==
[2024-06-07 01:13] VITALS: BMI 38.0
[2024-06-07] MEDS: cefTRIAXone\\ROCEPHIN 1 GM in Sodium Chloride 0.9% 100 ML IVPB SCH (01:26)
[2024-06-07] MEDS ORDERED: methylPREDNISolone Sod Succ/PF 125 MG/2 ML VIAL IVP SCH (01:30)
[2024-06-07] MEDS ORDERED: Furosemide 20 MG (2 mL) VIAL SLOW IVP SCH (02:00)
[2024-06-07] MEDS: Ipratropium/Albuterol 3 ML NEB NEB SCH ×2 (02:20→08:13)
[2024-06-07 02:44] LABS: ALT (SGPT) 27 U/L (8-55); AST (SGOT) 36 U/L (5-34); Albumin 3.1 g/dL (3.4-4.8); Alkaline Phosphatase 68 U/L (40-110); Anion Gap 15 mmol/L (10-20); BUN (Urea Nitrogen) 38 mg/dL (9.8-20.1); Bilirubin, Total 1.7 mg/dL (0.2-1.2); Calc. Creatinine Clearance 57 mL/min (70-130); Calcium 7.9 mg/dL (7.8-10.44); Carbon Dioxide 14 mmol/L (23-31); Chloride 109 mmol/L (98-107); Estimated GFR 41; Globulin 2.2 g/dL (2.4-3.5); Glucose 96 mg/dL (83-110); Phosphorus 2.6 mg/dL (2.3-4.7); Potassium 4.2 mmol/L (3.5-5.1); Protein, Total 5.3 g/dL (5.8-8.1); Sodium 134 mmol/L (136-145)
[2024-06-07] MEDS: traMADol HCl 50 MG TAB PO PRN (02:49)
[2024-06-07] MEDS: Acetaminophen 325 MG TAB PO PRN (02:49)
[2024-06-07] MEDS: Azithromycin 500 MG in Sodium Chloride 0.9% 250 ML 250 ML IVPB SCH (02:50)
[2024-06-07] MEDS: Ondansetron PF 4 MG/2 ML Vial IVP PRN (02:53)
[2024-06-07 04:58] LABS: ALT (SGPT) 24 U/L (8-55); AST (SGOT) 32 U/L (5-34); Albumin 2.7 g/dL (3.4-4.8); Alkaline Phosphatase 61 U/L (40-110); Anion Gap 13 mmol/L (10-20); BUN (Urea Nitrogen) 39 mg/dL (9.8-20.1); Bilirubin, Total 1.6 mg/dL (0.2-1.2); Calc. Creatinine Clearance 57 mL/min (70-130); Carbon Dioxide 19 mmol/L (23-31); Chloride 107 mmol/L (98-107); Estimated GFR 42; Globulin 2.3 g/dL (2.4-3.5); Glucose 101 mg/dL (83-110); Potassium 3.4 mmol/L (3.5-5.1); Sodium 136 mmol/L (136-145)
[2024-06-07 05:38] LABS: Troponin I 0.034 ng/mL (< 0.028)
[2024-06-07 06:18] LABS: Anisocytosis SLIGHT = 6-15 cells HPF (0-5); Band 22 % (5-11); Burr Cells SLIGHT = 2-5 cells HPF (0-1); Lymphocytes 2 % (21-51); Neutrophil 76 % (42-75); Ovalocytes SLIGHT = 2-5 cells HPF (0-1); Platelet Adequacy Comment Platelets Decreased; Smudge Cells 11.9 %
[2024-06-07 06:41] LABS: Hematocrit 36.4 % (36.0-47.0); Hemoglobin 12.2 g/dL (12.0-16.0); Mean Corpuscular HGB CONC 33.5 g/dL (32.0-36.0); Mean Corpuscular Hemoglobin 26.8 pg (27.0-31.0); Mean Platelet Volume 11.6 fL (7.4-10.4); Platelet Count 90 10x3/uL (130-400); RBC Distribution Width 15.8 % (11.5-14.5); Red Blood Cell (RBC) Count 4.55 mill/uL (4.20-5.40)
[2024-06-07] MEDS: Levothyroxine Sodium 50 MCG TAB PO SCH (06:44)
[2024-06-07] MEDS ORDERED: Famotidine/PF 20 mg/2ml Vial SLOW IVP SCH (09:00)
[2024-06-07] MEDS ORDERED: Famotidine 20 MG TAB PO SCH (09:00)
[2024-06-07] MEDS: Potassium Chloride 20 MEQ TAB PO SCH (09:10)
[2024-06-07] MEDS: Pantoprazole DR 40 MG TAB PO SCH (09:11)
[2024-06-07] MEDS: Cholecalciferol 1,000 UNITS (25 MCG) TAB PO SCH (09:11)
[2024-06-07] MEDS: pyridOXINE 50 MG (B6) TAB PO SCH (09:11)
[2024-06-07] MEDS: Dapagliflozin Propanediol 10 MG TAB PO SCH (09:11)
[2024-06-07] MEDS: Sertraline 100 MG TAB PO SCH (09:11)
[2024-06-07] MEDS: methylPREDNISolone Sod Succ/PF 125 MG/2 ML VIAL IVP SCH (09:12)
[2024-06-07] MEDS: Aspirin Chewable 81 MG TAB PO SCH (09:40)
[2024-06-07] MEDS: Enoxaparin 30 MG (0.3 mL) SYRINGE SC SCH (09:46)
[2024-06-07] MEDS: BIOTIN 5000 MCG PO SCH (09:46)
[2024-06-07] MEDS: Enoxaparin 40 MG (0.4 mL) SYRINGE SC SCH (13:19)
[2024-06-07] MEDS: Lactated Ringer's 1,000 ML IV SCH (18:43)
[2024-06-07 19:14] LABS: Legionella Urinary Ag Negative (Negative); Strep pneumo Urine Ag POSITIVE (NEGATIVE)
[2024-06-08] MEDS: Azithromycin 250 MG TAB PO SCH (01:51)
[2024-06-08 07:21] LABS: Hematocrit 39.1 % (36.0-47.0); Hemoglobin 12.3 g/dL (12.0-16.0); Mean Corpuscular HGB CONC 31.5 g/dL (32.0-36.0); Mean Corpuscular Hemoglobin 26.7 pg (27.0-31.0); Mean Corpuscular Volume 84.8 fL (78.0-98.0); Mean Platelet Volume 11.6 fL (7.4-10.4); Platelet Count 126 10x3/uL (130-400); RBC Distribution Width 15.9 % (11.5-14.5); Red Blood Cell (RBC) Count 4.61 mill/uL (4.20-5.40)
[2024-06-08 07:28] LABS: Anion Gap 12 mmol/L (10-20); BUN (Urea Nitrogen) 35 mg/dL (9.8-20.1); Calc. Creatinine Clearance 65 mL/min (70-130); Calcium 8.9 mg/dL (7.8-10.44); Carbon Dioxide 21 mmol/L (23-31); Chloride 112 mmol/L (98-107); Estimated GFR 49; Glucose 133 mg/dL (83-110); Potassium 4.6 mmol/L (3.5-5.1); Sodium 140 mmol/L (136-145)
[2024-06-08 07:50] LABS: Band 10 % (5-11); Lymphocytes 6 % (21-51); Monocytes 2 % (0-10); Neutrophil 82 % (42-75); Platelet Adequacy Comment Platelets Normal
[2024-06-08] MEDS: Enoxaparin 40 MG (0.4 mL) SYRINGE SC SCH (09:05)
[2024-06-08] MEDS: Guaifenesin DM 100-10/5 ML UDCUP PO PRN (14:50)
[2024-06-08] MEDS: Albumin 25% 25 GM (100 mL) BOT IVPB SCH (14:51)
[2024-06-08] MEDS: Ondansetron ODT 4 MG TAB PO PRN (17:24)
[2024-06-09 04:10] LABS: #Basophils 0.05 10x3/uL (0.0-0.2); #Eosinophils Less than 0.03 10x3/uL (0.0-0.7); %Basophils 0.5 % (0.0-1.0); %Eosinophils 0.1 % (0.0-10.0); %Lymphocytes 13.4 % (21.0-51.0); %Monocytes 6.6 % (0.0-10.0); Mean Corpuscular HGB CONC 31.6 g/dL (32.0-36.0); Mean Corpuscular Hemoglobin 26.4 pg (27.0-31.0); Mean Corpuscular Volume 83.7 fL (78.0-98.0); Mean Platelet Volume 11.6 fL (7.4-10.4); Platelet Count 156 10x3/uL (130-400); RBC Distribution Width 15.9 % (11.5-14.5); Red Blood Cell (RBC) Count 4.54 mill/uL (4.20-5.40)
[2024-06-09 04:21] LABS: Anion Gap 10 mmol/L (10-20); BUN (Urea Nitrogen) 37 mg/dL (9.8-20.1); Calc. Creatinine Clearance 69 mL/min (70-130); Carbon Dioxide 23 mmol/L (23-31); Chloride 111 mmol/L (98-107); Estimated GFR 52; Glucose 111 mg/dL (83-110); Potassium 4.7 mmol/L (3.5-5.1); Sodium 139 mmol/L (136-145)
[2024-06-09] MEDS: methylPREDNISolone Sod Succ/PF 125 MG/2 ML VIAL IVP SCH (17:46)
[2024-06-09 22:12] LABS: Mycoplasma pneumoniae IgG AB 251 U/mL (0-99); Mycoplasma pneumoniae IgM AB Less than 770 U/mL (0-769)
[2024-06-10 04:37] LABS: Hematocrit 38.9 % (36.0-47.0); Hemoglobin 12.2 g/dL (12.0-16.0); Mean Corpuscular HGB CONC 31.4 g/dL (32.0-36.0); Mean Corpuscular Hemoglobin 26.6 pg (27.0-31.0); Mean Corpuscular Volume 84.9 fL (78.0-98.0); Mean Platelet Volume 11.6 fL (7.4-10.4); Platelet Count 179 10x3/uL (130-400); RBC Distribution Width 15.7 % (11.5-14.5); Red Blood Cell (RBC) Count 4.58 mill/uL (4.20-5.40)
[2024-06-10 04:49] LABS: Anion Gap 11 mmol/L (10-20); BUN (Urea Nitrogen) 30 mg/dL (9.8-20.1); Calc. Creatinine Clearance 69 mL/min (70-130); Carbon Dioxide 23 mmol/L (23-31); Chloride 111 mmol/L (98-107); Estimated GFR 52; Glucose 146 mg/dL (83-110); Potassium 5.3 mmol/L (3.5-5.1); Sodium 140 mmol/L (136-145)
[2024-06-10 05:05] LABS: Band 4 % (5-11); Eosinophils 1 % (0-10); Lymphocytes 10 % (21-51); Metamyelocyte 1 % (0-0); Microcytosis SLIGHT = 6-15 cells HPF (0-5); Monocytes 1 % (0-10); Myelocyte 1 % (0-0); Neutrophil 82 % (42-75); Ovalocytes SLIGHT = 2-5 cells HPF (0-1); Platelet Adequacy Comment Platelets Normal; Polychromasia SLIGHT = 2-3 cells HPF (0-2); Toxic Granulation SLIGHT
[2024-06-10] MEDS: predniSONE 50 MG TAB PO SCH (08:29)
[2024-06-10] MEDS: Albumin 25% 25 GM (100 mL) BOT IVPB SCH (10:49)
[2024-06-10 20:07] LABS: Potassium 4.8 mmol/L (3.5-5.1)
[2024-06-11 06:42] LABS: Hematocrit 38.2 % (36.0-47.0); Hemoglobin 12.2 g/dL (12.0-16.0); Mean Corpuscular HGB CONC 31.9 g/dL (32.0-36.0); Mean Corpuscular Hemoglobin 26.7 pg (27.0-31.0); Mean Corpuscular Volume 83.6 fL (78.0-98.0); Mean Platelet Volume 10.6 fL (7.4-10.4); Platelet Count 199 10x3/uL (130-400); RBC Distribution Width 15.3 % (11.5-14.5); Red Blood Cell (RBC) Count 4.57 mill/uL (4.20-5.40)
[2024-06-11 06:48] LABS: Anion Gap 12 mmol/L (10-20); BUN (Urea Nitrogen) 21 mg/dL (9.8-20.1); Calc. Creatinine Clearance 93 mL/min (70-130); Calcium 9.4 mg/dL (7.8-10.44); Carbon Dioxide 26 mmol/L (23-31); Chloride 107 mmol/L (98-107); Estimated GFR 74; Glucose 92 mg/dL (83-110); Potassium 4.1 mmol/L (3.5-5.1); Sodium 141 mmol/L (136-145)
[2024-06-11 07:24] LABS: Anisocytosis SLIGHT = 6-15 cells HPF (0-5); Band 2 % (5-11); Hypochromia SLIGHT = 6-15 cells HPF (0-5); Lymphocytes 25 % (21-51); Metamyelocyte 2 % (0-0); Microcytosis SLIGHT = 6-15 cells HPF (0-5); Monocytes 11 % (0-10); Myelocyte 1 % (0-0); Neutrophil 59 % (42-75); Ovalocytes SLIGHT = 2-5 cells HPF (0-1); Platelet Adequacy Comment Platelets Normal; Polychromasia SLIGHT = 2-3 cells HPF (0-2); Toxic Granulation SLIGHT; Vacuoles SLIGHT
[2024-06-12 05:37] LABS: Hematocrit 39.6 % (36.0-47.0); Hemoglobin 12.6 g/dL (12.0-16.0); Mean Corpuscular HGB CONC 31.8 g/dL (32.0-36.0); Mean Corpuscular Hemoglobin 26.6 pg (27.0-31.0); Mean Corpuscular Volume 83.5 fL (78.0-98.0); Mean Platelet Volume 10.5 fL (7.4-10.4); Platelet Count 225 10x3/uL (130-400); RBC Distribution Width 14.9 % (11.5-14.5); Red Blood Cell (RBC) Count 4.74 mill/uL (4.20-5.40)
[2024-06-12 05:43] LABS: Anion Gap 11 mmol/L (10-20); BUN (Urea Nitrogen) 23 mg/dL (9.8-20.1); Calc. Creatinine Clearance 92 mL/min (70-130); Calcium 9.3 mg/dL (7.8-10.44); Carbon Dioxide 27 mmol/L (23-31); Chloride 108 mmol/L (98-107); Estimated GFR 72; Glucose 94 mg/dL (83-110); Potassium 3.8 mmol/L (3.5-5.1); Sodium 142 mmol/L (136-145)
[2024-06-12 06:10] LABS: Band 3 % (5-11); Lymphocytes 28 % (21-51); Metamyelocyte 4 % (0-0); Microcytosis SLIGHT = 6-15 cells HPF (0-5); Monocytes 2 % (0-10); Myelocyte 4 % (0-0); Neutrophil 58 % (42-75); Ovalocytes SLIGHT = 2-5 cells HPF (0-1); Platelet Adequacy Comment Platelets Normal
[2024-06-12] MEDS: Carvedilol 6.25 MG TAB PO SCH ×2 (08:59→17:26)
[2024-06-12] MEDS: Lisinopril 20 MG TAB PO SCH (08:59)
[2024-06-12] MEDS ORDERED: Polyethylene Glycol 3350 17 GM Packet PO PRN (17:40)
[2024-06-12] MEDS: Polyethylene Glycol 3350 17 GM Packet PO SCH (18:20)
[2024-06-13 04:49] LABS: Hematocrit 40.8 % (36.0-47.0); Hemoglobin 12.9 g/dL (12.0-16.0); Mean Corpuscular HGB CONC 31.6 g/dL (32.0-36.0); Mean Corpuscular Hemoglobin 26.5 pg (27.0-31.0); Mean Platelet Volume 10.5 fL (7.4-10.4); Platelet Count 262 10x3/uL (130-400); RBC Distribution Width 15.1 % (11.5-14.5); Red Blood Cell (RBC) Count 4.86 mill/uL (4.20-5.40)
[2024-06-13 04:58] LABS: Anion Gap 12 mmol/L (10-20); BUN (Urea Nitrogen) 29 mg/dL (9.8-20.1); Calc. Creatinine Clearance 78 mL/min (70-130); Calcium 8.9 mg/dL (7.8-10.44); Carbon Dioxide 26 mmol/L (23-31); Chloride 108 mmol/L (98-107); Estimated GFR 60; Glucose 94 mg/dL (83-110); Sodium 142 mmol/L (136-145)
[2024-06-13 05:41] LABS: Band 2 % (5-11); Burr Cells SLIGHT = 2-5 cells HPF (0-1); Lymphocytes 19 % (21-51); Metamyelocyte 3 % (0-0); Microcytosis SLIGHT = 6-15 cells HPF (0-5); Monocytes 3 % (0-10); Myelocyte 2 % (0-0); Neutrophil 69 % (42-75); Ovalocytes SLIGHT = 2-5 cells HPF (0-1); Platelet Adequacy Comment Platelets Normal; Polychromasia SLIGHT = 2-3 cells HPF (0-2); Promyelocytes 1 % (0-0); Reactive Lymphocytes 1 % (0-10); Toxic Granulation MODERATE
[2024-06-13] MEDS: hydrALAZINE 20 MG/ML VIAL SLOW IVP SCH (06:36)
[2024-06-13] MEDS: Polyethylene Glycol 3350 17 GM Packet PO SCH (09:28)
[2024-06-13] MEDS: Ipratropium/Albuterol 3 ML NEB NEB SCH (14:16)
[2024-06-14 05:24] LABS: Hematocrit 38.1 % (36.0-47.0); Hemoglobin 12.2 g/dL (12.0-16.0); Mean Corpuscular Hemoglobin 26.5 pg (27.0-31.0); Mean Corpuscular Volume 82.8 fL (78.0-98.0); Mean Platelet Volume 10.4 fL (7.4-10.4); Platelet Count 242 10x3/uL (130-400); RBC Distribution Width 15.1 % (11.5-14.5)
[2024-06-14 05:27] LABS: Anion Gap 9 mmol/L (10-20); BUN (Urea Nitrogen) 36 mg/dL (9.8-20.1); Calc. Creatinine Clearance 87 mL/min (70-130); Calcium 8.7 mg/dL (7.8-10.44); Carbon Dioxide 25 mmol/L (23-31); Chloride 110 mmol/L (98-107); Estimated GFR 67; Glucose 93 mg/dL (83-110); Sodium 140 mmol/L (136-145)
[2024-06-14 07:45] LABS: Band 5 % (5-11); Lymphocytes 16 % (21-51); Metamyelocyte 2 % (0-0); Monocytes 3 % (0-10); Neutrophil 74 % (42-75); Platelet Adequacy Comment Platelets Normal; RBC Morphology Within Normal Limits
[2024-06-14] MEDS ORDERED: hydrALAZINE 20 MG/ML VIAL SLOW IVP PRN (09:01)
[2024-06-14] MEDS: Cyclobenzaprine 10 MG TAB PO SCH (10:38)
[2024-06-14 13:07] VITALS: BP 107/63; TEMP 97.4
== END 2024-06-14 14:00 | disposition home or self-care (01) | DRG 871 ==
LOC: SURG B 06-07 00:23 → 2NO 06-07 02:25 → OBSVTOIN 06-08 12:57 → MSONC 06-13 18:18
PROVIDERS: ADMIT Internal Medicine; ATTEND Internal Medicine
PROC: 3E03329 Introduction of Other Anti-infective into Peripheral Vein, Percutaneous Approach (ICD-10-PCS; principal; 2024-06-07)
PROC: 30233J1 Transfusion of Nonautologous Serum Albumin into Peripheral Vein, Percutaneous Approach (ICD-10-PCS; 2024-06-08)
DX: A40.9 Streptococcal sepsis, unspecified (principal); J15.4 Pneumonia due to other streptococci; J96.01 Acute respiratory failure with hypoxia; I50.32 Chronic diastolic (congestive) heart failure; J44.1 Chronic obstructive pulmonary disease with (acute) exacerbation; N17.9 Acute kidney failure, unspecified; F32.A Depression, unspecified; E03.9 Hypothyroidism, unspecified; Z91.041 Radiographic dye allergy status; Z88.2 Allergy status to sulfonamides; Z79.899 Other long term (current) drug therapy; I11.0 Hypertensive heart disease with heart failure; K52.9 Noninfective gastroenteritis and colitis, unspecified; Z79.82 Long term (current) use of aspirin; Z88.5 Allergy status to narcotic agent
CPT/HCPCS: 36415; 71045; 74176; 78451; 80048; 80053; 81001; 83605; 83690; 83735; 83880; 84100; 84145; 84484; 85025; 87040; 87428; 87449; 87899; 93005; 93970; 94640; 96361; 96365; 96372; 96374; 96375; 96376; A9540; G0378; J0456; J0696; J1650; J1956; J2405; J2919; J7050; J7120; J7512; J7620; P9047; Q0162